=== PATIENT | female | born 1985 | race Caucasian/White ===

== ENCOUNTER 2019-10-10 17:07 | Emergency (ER) | payer OTHER ==
[~2019-10-10] VITALS: Ht 152.4 cm; Wt 81.6 kg
[2019-10-10] MEDS ORDERED: PRENA1 CHEW TA1.4 MG (17:41)
== END 2019-10-10 22:43 | disposition home or self-care (01) ==
LOC: ER 17:07
DX: K80.50 Calculus of bile duct without cholangitis or cholecystitis without obstruction (principal)